=== PATIENT | female | born 1965 | race Caucasian/White ===

== ENCOUNTER 2018-06-11 01:47 | Emergency (ER) | payer BC ==
[2018-06-11] MEDS ORDERED: Mag-Al 1200 mg/1200 mg/30 ML UDCUP ONE (02:14)
[2018-06-11] MEDS ORDERED: Lidocaine Viscous Sol 2% 15 ml UD Cup ONE (02:14)
[2018-06-11 03:00] LABS: Troponin I Less than 0.010 ng/mL (< 0.028)
== END 2018-06-11 04:58 | disposition home or self-care (01) ==
LOC: ERS 01:47
DX: R07.89 Other chest pain (principal); F17.210 Nicotine dependence, cigarettes, uncomplicated; E03.9 Hypothyroidism, unspecified; E78.5 Hyperlipidemia, unspecified; Z79.899 Other long term (current) drug therapy; Z71.6 Tobacco abuse counseling
CPT/HCPCS: 36415; 83690; 84484; 93005; 99406